=== PATIENT | female | born 1960 | race Caucasian/White ===

== ENCOUNTER 2021-03-05 21:57 | Inpatient (IN) | payer MEDICAID ==
[~2021-03-05] VITALS: Ht 160 cm; Wt 74.8 kg
[2021-03-05] MEDS ORDERED: MORPHINE SULFATE 4 MG/ML CPJ (NOT FOR IM USE) IV STA (22:13)
[2021-03-05] MEDS ORDERED: KETOROLAC 30MG/ML VIAL IV STA (22:13)
[2021-03-06] MEDS ORDERED: SODIUM CHLORIDE 0.9% 1,000 ML IV ONE (00:15)
[2021-03-06] MEDS ORDERED: ONDANSETRON HCL 4MG/2ML INJ IV STA (00:15)
[2021-03-06] MEDS ORDERED: MORPHINE SULFATE 4 MG/ML CPJ (NOT FOR IM USE) IV STA (00:15)
[2021-03-06 00:40] LABS: BASOPHILS % 0.1 % (0.0-2.0); HEMATOCRIT. 45.1 % (36.0-48.0); HEMOGLOBIN. 14.9 g/dL (12.0-16.0); LYMPHOCYTES % 9.6 % (20.0-50.0); MEAN PLATELET VOLUME 11.5 fl (7.4-10.4); MONOCYTES % 6.8 % (2.0-8.0); NEUTROPHILS % 83.5 % (40.0-76.0); PLATELET 211 x1000/uL (130-400); RED BLOOD CELL COUNT 5.13 mill/uL (4.2-5.4); RED CELL DISTRIBUTION WIDTH 14.1 % (11.6-14.6)
[2021-03-06 00:47] LABS: CHLORIDE 106 mEq/L (98-107)
[2021-03-06 01:06] LABS: HCG SCREEN NEGATIVE
[2021-03-06 02:38] LABS: CLARITY URINE CLEAR (CLEAR); COLOR URINE DARK YELLOW (YELLOW)
[2021-03-06 02:39] LABS: PROTEIN URINE 1+ (NEGATIVE)
[2021-03-06 02:40] LABS: KETONES URINE NEGATIVE (NEGATIVE); LEUKOCYTE ESTERASE URINE 1+ (NEGATIVE); NITRITE URINE NEGATIVE (NEGATIVE); OCCULT BLOOD URINE NEGATIVE (NEGATIVE)
[2021-03-06] MEDS ORDERED: KETOROLAC 30MG/ML VIAL IV NR (03:15)
[2021-03-06] MEDS ORDERED: PIPERACILLIN/TAZ 3.375G PREMIX 50 ML IV ONE (05:15)
[2021-03-06] MEDS ORDERED: METRONIDAZOLE 500 MG PREMIX 100 ML IV ONE (05:15)
[2021-03-06] MEDS: DEXT 5%/0.45% NACL KCL 10MEQ/L 1,000 ML IV SCH (08:01)
[2021-03-06 11:00] VITALS: BP 145/72
[2021-03-06] MEDS: HYDROMORPHONE HCL/PF 2MG/ML CPJ IV PRN (15:13)
[2021-03-06 16:00] VITALS: BP 107/52
[2021-03-06] MEDS: ONDANSETRON HCL 4MG/2ML INJ IV PRN (17:07)
[2021-03-06 20:00] VITALS: BP 108/61
[2021-03-07] VITALS: BP 125/50
[2021-03-07 04:24] VITALS: BP 127/75
[2021-03-07 08:00] VITALS: BP 117/60
[2021-03-07 08:28] LABS: BASOPHILS % 0.2 % (0.0-2.0); EOSINOPHILS % 0.2 % (0.0-5.0); HEMATOCRIT. 40.8 % (36.0-48.0); HEMOGLOBIN. 13.7 g/dL (12.0-16.0); LYMPHOCYTES % 18.6 % (20.0-50.0); MEAN CORPUSCULAR HEMOGLOBIN 29.7 pg (28.0-32.0); MEAN CORPUSCULAR VOLUME 88.7 fL (81.0-99.0); MEAN PLATELET VOLUME 11.7 fl (7.4-10.4); MONOCYTES % 7.9 % (2.0-8.0); NEUTROPHILS % 73.1 % (40.0-76.0); PLATELET 166 x1000/uL (130-400)
[2021-03-07] MEDS: HYDROMORPHONE HCL/PF 2MG/ML CPJ IV PRN ×2 (08:53→18:45)
[2021-03-07 09:29] LABS: CHLORIDE 110 mEq/L (98-107)
[2021-03-07 09:38] LABS: LDL CHOLESTEROL 83 mg/dL (5-100)
[2021-03-07 09:40] LABS: HDL CHOLESTEROL 44 mg/dL (40-59)
[2021-03-07] MEDS ORDERED: NALOXONE HCL 0.4MG/ML VIAL IV PRN (11:15)
[2021-03-07 12:00] VITALS: BP 120/58
[2021-03-07] MEDS ORDERED: PNEUMOCOCCAL 23-VAL P-SAC VAC 0.5 ML IM ONE (12:30)
[2021-03-07] MEDS ORDERED: INFLUENZA VACCINE 05/PF 0.5 ML SYRINGE IM ONE (13:00)
[2021-03-07] MEDS: DEXT 5%/0.45% NACL KCL 10MEQ/L 1,000 ML IV SCH (14:12)
[2021-03-07 16:00] VITALS: BP 109/41
[2021-03-07 20:00] VITALS: BP 112/62
[2021-03-08] VITALS: BP 125/80
[2021-03-08] MEDS: HYDROMORPHONE HCL/PF 2MG/ML CPJ IV PRN ×5 (00:03→23:52)
[2021-03-08 04:00] VITALS: BP 121/58
[2021-03-08] MEDS: DEXT 5%/0.45% NACL KCL 10MEQ/L 1,000 ML IV SCH ×3 (04:08→21:16)
[2021-03-08 07:24] LABS: BASOPHILS % 0.4 % (0.0-2.0); EOSINOPHILS % 0.8 % (0.0-5.0); HEMATOCRIT. 38.7 % (36.0-48.0); HEMOGLOBIN. 12.9 g/dL (12.0-16.0); LYMPHOCYTES % 19.3 % (20.0-50.0); MEAN CORPUSCULAR HEMOGLOBIN 29.5 pg (28.0-32.0); MEAN CORPUSCULAR VOLUME 88.6 fL (81.0-99.0); MEAN PLATELET VOLUME 10.9 fl (7.4-10.4); MONOCYTES % 7.7 % (2.0-8.0); NEUTROPHILS % 71.8 % (40.0-76.0); PLATELET 153 x1000/uL (130-400); RED BLOOD CELL COUNT 4.36 mill/uL (4.2-5.4); RED CELL DISTRIBUTION WIDTH 14.2 % (11.6-14.6)
[2021-03-08 07:29] LABS: CHLORIDE 107 mEq/L (98-107)
[2021-03-08 08:00] VITALS: BP 124/64
[2021-03-08] MEDS: ONDANSETRON HCL 4MG/2ML INJ IV PRN (09:56)
[2021-03-08 12:00] VITALS: BP 114/63
[2021-03-08 16:00] VITALS: BP 126/67
[2021-03-08 20:00] VITALS: BP 121/68
[2021-03-09] VITALS: BP 127/64
[2021-03-09] MEDS: ONDANSETRON HCL 4MG/2ML INJ IV PRN ×2 (00:06→05:40)
[2021-03-09 04:00] VITALS: BP 118/71
[2021-03-09] MEDS: HYDROMORPHONE HCL/PF 2MG/ML CPJ IV PRN (05:40)
[2021-03-09 06:23] LABS: BASOPHILS % 0.4 % (0.0-2.0); EOSINOPHILS % 1.5 % (0.0-5.0); HEMATOCRIT. 39.1 % (36.0-48.0); HEMOGLOBIN. 13.1 g/dL (12.0-16.0); LYMPHOCYTES % 18.8 % (20.0-50.0); MEAN CORPUSCULAR HEMOGLOBIN 29.5 pg (28.0-32.0); MEAN CORPUSCULAR VOLUME 87.8 fL (81.0-99.0); MEAN PLATELET VOLUME 11.7 fl (7.4-10.4); MONOCYTES % 9.1 % (2.0-8.0); NEUTROPHILS % 70.2 % (40.0-76.0); PLATELET 151 x1000/uL (130-400); RED BLOOD CELL COUNT 4.45 mill/uL (4.2-5.4); RED CELL DISTRIBUTION WIDTH 13.9 % (11.6-14.6)
[2021-03-09 06:26] LABS: CHLORIDE 105 mEq/L (98-107)
[2021-03-09 08:00] VITALS: BP 109/50
[2021-03-09] MEDS ORDERED: LACTULOSE 20G/30ML UDC PO NR (10:45)
[2021-03-09 12:00] VITALS: BP 116/50
[2021-03-09 13:22] VITALS: BP 124/63
== END 2021-03-09 16:10 | disposition home or self-care (01) | DRG 282 ==
LOC: ER 21:57 → 8WST 03-06 04:10 → EDBD 03-06 04:10 → EDBEDREQTM 03-06 04:16 → EDBEDREQ 03-06 04:16 → ENRESERV 03-06 09:59
PROVIDERS: ADMIT Hospitalist; ATTEND Hospitalist
DX: K85.10 Biliary acute pancreatitis without necrosis or infection (principal); R65.11 Systemic inflammatory response syndrome (SIRS) of non-infectious origin with acute organ dysfunction; Z20.822 Contact with and (suspected) exposure to COVID-19
CPT/HCPCS: 36415; 71045; 74176; 76705; 80053; 80061; 81003; 83880; 84484; 84703; 85025; 87426; 90686; 93005; 93970; 99285; J1170; J1885; J2270; J2405; J2543; J3490; J7030